=== PATIENT | female | born 1985 | race Caucasian/White ===

== ENCOUNTER → 2024-08-06 | Outpatient (REF) | payer OTHER | LOC: M LAB REF 17:42 | PROVIDERS: ATTEND Physician Assistant | DX: B34.9 Viral infection, unspecified (principal) ==

== ENCOUNTER → 2024-09-13 | Day surgery (SDC) | payer OTHER ==
[~2024-09-13] VITALS: Ht 175.3 cm; Wt 122.0 kg
[~2024-09-13] MED LIST: ACETAMINOPHEN 1000MG/100ML IV BAG As Ordered ONE; CEPH500C PO; ESMOLOL INJ 100MG/10ML VIAL As Ordered ONE; HOME MED LIST COMPLETE! XX SCH; HYDROMORPHONE HCL 0.5 MG/ 0.5 ML SYRINGE IV PRN; ISOVUE-370 76% 100ML VIAL As Ordered ONE; LIDOCAINE 2% 100MG/5ML SDV (FOR ANES.) As Ordered ONE; MEPERIDINE 25 MG/ML 1ML VIAL As Ordered ONE; METOCLOPRAMIDE INJ 10MG/2ML VIAL As Ordered ONE; METOCLOPRAMIDE INJ 10MG/2ML VIAL IV PRN; MIDAZOLAM INJ 2MG/2ML VIAL As Ordered ONE; NORCO, ANEXSIA 5/325MG TABLET (HYDROcodone/ACETAMINOPHEN) PO PRN; NS (Normal Saline) 0.9% 1,000 ML IV SCH; OMEP40CA5 PO; ONDANSETRON 4MG 2ML VIAL As Ordered ONE; ONDANSETRON 4MG 2ML VIAL IV PRN; ROCURONIUM BROMIDE 50MG/5ML VIAL As Ordered ONE; SUGAMMADEX SODIUM 500 MG/5 ML VIAL (BRIDION) As Ordered ONE; fentaNYL 100 MCG/2 ML INJECTION As Ordered ONE; fentaNYL 100 MCG/2 ML INJECTION IV PRN; oxyCODONE 5MG TAB PO PRN; propofoL 200 MG/20 ML VIAL As Ordered ONE
[2024-09-13] MEDS: ONDANSETRON 4MG 2ML VIAL IV ONE (17:12)
[2024-09-13] MEDS: KETOROLAC 30 MG/ML 1ML VIAL IV ONE ×2 (17:12→21:25)
[2024-09-13 17:28] LABS: BASO # 0.1 10^3/uL (0.0-0.2); BASO % 0.3 % (0.0-1.0); HEMATOCRIT 40.3 % (36.0-47.0); HEMOGLOBIN 14.1 g/dl (12.0-15.5); LYMPH # 1.4 10^3/uL (1.5-5.0); LYMPH % 5.9 % (24.0-44.0); MEAN CORPUSCULAR HEMOGLOBIN 28.8 pg (27.0-33.0); MEAN CORPUSCULAR VOLUME 82.4 fl (80.0-96.0); MONO # 0.8 10^3/uL (0.0-0.8); MONO % 3.6 % (2.0-8.0); NEUTROPHILS # 20.6 10^3/uL (1.5-8.5); NEUTROPHILS % 89.6 % (36.0-66.0); PLATELET COUNT, AUTOMATED 322 10^3/uL (150-450); RED BLOOD COUNT 4.89 10^6/uL (4.00-5.40)
[2024-09-13] MEDS: PIPERACILLIN/TAZOBACTAM SOD 3.375 GM in DEXTROSE 5% (D5W) ADV/MINI-BAG 50 ML IV ONE (17:46)
[2024-09-13 17:47] LABS: LIPASE 27 U/L (12-53)
[2024-09-13 17:49] LABS: ALBUMIN 4.2 G/DL (3.2-5.2); ALKALINE PHOSPHATASE 90 U/L (35-104); ALT/SGPT 23 U/L (7.0-40); AST/SGOT 10 U/L (<34); BILIRUBIN,DIRECT 0.2 MG/DL (<0.4); BILIRUBIN,TOTAL 0.7 MG/DL (0.3-1.2); TOTAL PROTEIN 7.2 G/DL (5.7-8.2)
[2024-09-13 17:56] LABS: HCG, SERUM QUALITATIVE NEGATIVE (NEGATIVE)
[2024-09-13 19:13] LABS: BLOOD UREA NITROGEN 12 MG/DL (9-23); CALCIUM LEVEL 9.5 MG/DL (8.5-10.1); CARBON DIOXIDE LEVEL 23 MMOL/L (20-31); CHLORIDE LEVEL 105 MMOL/L (98-107); CREATININE FOR GFR 0.46 MG/DL (0.55-1.30); GLOMERULAR FILTRATION RATE > 60.0 (>58); GLUCOSE, FASTING 214 MG/DL (60-100); SODIUM LEVEL 139 MMOL/L (136-145)
[2024-09-13] MEDS: MEPERIDINE 25 MG/ML 1ML VIAL IV PRN (21:25)
[2024-09-13 22:00] VITALS: BP 138/65; TEMP 97.9; O2SAT 98
== END | disposition home or self-care (01) ==
LOC: M ED 16:25 → M OROP 19:10
PROVIDERS: ATTEND Surgery
DX: K35.890 Other acute appendicitis without perforation or gangrene (principal); R11.10 Vomiting, unspecified; K21.9 Gastro-esophageal reflux disease without esophagitis; Z90.49 Acquired absence of other specified parts of digestive tract; Z88.2 Allergy status to sulfonamides; Z79.899 Other long term (current) drug therapy
CPT/HCPCS: 36415; 44970; 80048; 80076; 81001; 83690; 84703; 85025; 88304; 96365; 96375; 99284; J0131; J0665; J1805; J1885; J2175; J2250; J2405; J2543; J2765; J3010; Q9967

== ENCOUNTER 2024-09-14 20:38 | Emergency (ER) | payer OTHER ==
[~2024-09-14] VITALS: Ht 175.3 cm; Wt 122.2 kg
[~2024-09-14 20:38] MED LIST changes: -ACETAMINOPHEN 1000MG/100ML IV BAG As Ordered ONE; -CEPH500C PO; -ESMOLOL INJ 100MG/10ML VIAL As Ordered ONE; -HOME MED LIST COMPLETE! XX SCH; -HYDROMORPHONE HCL 0.5 MG/ 0.5 ML SYRINGE IV PRN; -ISOVUE-370 76% 100ML VIAL As Ordered ONE; -LIDOCAINE 2% 100MG/5ML SDV (FOR ANES.) As Ordered ONE; -MEPERIDINE 25 MG/ML 1ML VIAL As Ordered ONE; -METOCLOPRAMIDE INJ 10MG/2ML VIAL As Ordered ONE; -METOCLOPRAMIDE INJ 10MG/2ML VIAL IV PRN; -MIDAZOLAM INJ 2MG/2ML VIAL As Ordered ONE; -NORCO, ANEXSIA 5/325MG TABLET (HYDROcodone/ACETAMINOPHEN) PO PRN; -NS (Normal Saline) 0.9% 1,000 ML IV SCH; -ONDANSETRON 4MG 2ML VIAL As Ordered ONE; -ONDANSETRON 4MG 2ML VIAL IV PRN; -ROCURONIUM BROMIDE 50MG/5ML VIAL As Ordered ONE; -SUGAMMADEX SODIUM 500 MG/5 ML VIAL (BRIDION) As Ordered ONE; -fentaNYL 100 MCG/2 ML INJECTION As Ordered ONE; -fentaNYL 100 MCG/2 ML INJECTION IV PRN; -oxyCODONE 5MG TAB PO PRN; -propofoL 200 MG/20 ML VIAL As Ordered ONE
[2024-09-14 20:45] VITALS: TEMP 97.4
[2024-09-15] MEDS: LIDOCAINE 1% MDV 20ML VIAL SC ONE (01:02)
[2024-09-15] MEDS: CEPHALEXIN 500 MG CAP PO ONE (01:02)
[2024-09-15] MEDS: BOOSTRIX VACCINE (TETANUS/DIPHTH/ACEL. PERTUSSIS) 0.5ML SYR IM ONE (01:04)
[2024-09-15] MEDS ORDERED: CEPH500C PO (01:25)
[2024-09-15 01:37] VITALS: BP 149/77; O2SAT 94
== END 2024-09-15 01:54 | disposition home or self-care (01) ==
LOC: M ED 20:38
DX: S61.412A Laceration without foreign body of left hand, initial encounter (principal); W26.0XXA Contact with knife, initial encounter; E11.9 Type 2 diabetes mellitus without complications; K21.9 Gastro-esophageal reflux disease without esophagitis; Y92.000 Kitchen of unspecified non-institutional (private) residence as the place of occurrence of the external cause; Y93.G1 Activity, food preparation and clean up; Y99.9 Unspecified external cause status; Z23 Encounter for immunization; Z88.2 Allergy status to sulfonamides; Z79.2 Long term (current) use of antibiotics; Z79.899 Other long term (current) drug therapy

== ENCOUNTER → 2024-09-21 | Outpatient (CLI) | payer OTHER ==
[~2024-09-21] MED LIST changes: +CEPH500C PO
== END ==
LOC: M SOG 13:22
PROVIDERS: ATTEND Physician Assistant
DX: M79.642 Pain in left hand (principal)